=== PATIENT | female | born 1945 | race Two or more races ===

== ENCOUNTER 2019-09-24 06:44 | Day surgery (SDC) | payer MEDICARE, BC ==
--- NOTE | 2019-09-21 10:14 | Opthalmology H&P ---
Ophthalmology H&P H&P Chief Complaint: decreased vision in left eye HPI Vision Affects Ability to: read, manage personal affairs HPI Narrative Blurry vision Exam Visual Acuity: OD 20/60 OS 20/80 Tension: OD 21 OS 20 Eye Exam: normal OU: external exam, palpebral fissure-width, marginal reflex distance, levator function, corneas, anterior chambers, fundus exam; findings: lens - NS Cataracts OU Assessment/Plan Treatment Plan: cataract extraction w/ lens implant Goals of Treatment: improvement of vision, enhance quality of life Attestation Attestation The risks and benefits of the surgery as well as alternative procedures were explained to the patient in detail. Ari Nunes MD Sep 21, 2019 10:14
--- NOTE | 2019-09-21 10:15 | Pre-Procedure Note/Attestation ---
Pre-Procedure Note/Attestation Complete Prior to Procedure Planned Procedure: left Procedure Narrative: Cataract extraction with intraocular lens implant left eye Indications for Procedure Pre-Operative Diagnosis: Nuclear sclerotic cataract left eye Attestation I attest that I discussed the nature of the procedure; its benefits; risks and complications; and alternatives (and the risks and benefits of such alternatives ), prior to the procedure, with the patient (or the patient's legal outside dealer sales representative). I attest that, if there was a reasonable possibility of needing a blood transfusion, the patient (or the patient's legal outside dealer sales representative) was given the [facility] standardized written summary, pursuant to the [place]ke [place] Blood Safety Act ([place] Health and Safety Code # 1645, as amended). I attest that I re-evaluated the patient just prior to the surgery and that there has been no change in the patient's H&P, except as documented below: Ari Nunes MD Sep 21, 2019 10:15
[~2019-09-24] VITALS: Ht 167.6 cm; Wt 56.2 kg
[2019-09-24] VITALS (10 sets, daily range): BP systolic 110–141; BP diastolic 69–94
[2019-09-24] MEDS: Ciprofloxacin Opth Soln 5ml LEFT EYE SCH ×3 (06:10→07:47)
[~2019-09-24 06:44] MED LIST: ASPIR 8181 MG ORAL; Akten 3.5% 1ml Btl LEFT EYE ONE; CENTRUM SILVER1 EAC4 PO; Cyclopentolate 1% Opth Sol 2ml LEFT EYE SCH; HYDROCHLOROTH12.5 MG ORAL; K-TAB10 MEQ PO; LYRICA75 M1 ORAL; MAGNESIUM OXID400 M1 ORAL; METOPROLOL SUCC25 MG ORAL; NAMENDA XR7 MG PO; OMEPRAZOLE40 M1 ORAL; Phenylephrine 10% Opth Soln 5ml LEFT EYE SCH; Proparacaine 0.5% Opth Soln 15ml LEFT EYE ONE; TAB-A-VITE1 EACH ORAL; TRAMADOL HCL50 MG ORAL; Tetracaine 0.5% Opth 4ml Soln LEFT EYE ONE; Tobramycin Op Soln 0.3% 5ml LEFT EYE SCH; Tropicamide 1% Opth 15ml Soln LEFT EYE SCH
[2019-09-24] MEDS ORDERED: Proparacaine 0.5% Opth Soln 15ml LEFT EYE ONE (07:00)
[2019-09-24] MEDS ORDERED: Tetracaine 0.5% Opth 4ml Soln LEFT EYE ONE (07:00)
[2019-09-24] MEDS ORDERED: Akten 3.5% 1ml Btl LEFT EYE ONE (07:00)
[2019-09-24] MEDS: Tropicamide 1% Opth 15ml Soln LEFT EYE SCH ×3 (07:38→07:54)
[2019-09-24] MEDS: Tobramycin Op Soln 0.3% 5ml LEFT EYE SCH ×3 (07:39→07:54)
[2019-09-24] MEDS: Phenylephrine 10% Opth Soln 5ml LEFT EYE SCH ×3 (07:39→07:54)
[2019-09-24] MEDS: Cyclopentolate 1% Opth Sol 2ml LEFT EYE SCH ×3 (07:40→07:54)
[2019-09-24] MEDS ORDERED: Sodium Hyaluronate 10 mg/ml 0.85ml ONE (08:28)
[2019-09-24] MEDS ORDERED: BSS 500ml btl ONE (08:28)
[2019-09-24] MEDS ORDERED: BSS 15ml BTL ONE (08:28)
[2019-09-24] MEDS ORDERED: Povidone-Iodine 5% opth solution ONE (08:28)
[2019-09-24] MEDS ORDERED: LR 1000ml ONE (09:30)
[2019-09-24] MEDS ORDERED: fentaNYL 100 mcg/2 mL IV ONE ×2 (09:44→10:24)
[2019-09-24] MEDS ORDERED: Midazolam 2mg/2ml Inj ONE ×2 (09:44→10:04)
--- NOTE | 2019-09-24 11:27 | Immediate Post-Op Evaluation ---
Immediate Post-Op Evalulation Immediate Post-Op Evalulation Procedure: left eye cataract extraction with IOL Date of Evaluation: Sep 24, 2019 Time of Evaluation: 10:46 IV Fluids: 300 Blood Pressure Systolic: 127 Blood Pressure Diastolic: 78 Pulse Rate: 79 Respiratory Rate: 14 O2 Sat by Pulse Oximetry: 98 Temperature (Fahrenheit): 97.5 Nausea: No Vomiting: No Complications none Patient Status: awake, reacts, patent Hydration Status: adequate Drug: none Valarie Sharma CRNA Sep 24, 2019 11:27
--- NOTE | 2019-09-24 11:29 | Anethesia Preoperative Eval ---
Anesthesia Pre-op PMH/ROS General Date of Evaluation: Sep 24, 2019 Time of Evaluation: 09:35 Anesthesiologist: elinor ASA Score: ASA 2 Mallampati Score Class I : Soft palate, uvula, fauces, pillars visible Class II: Soft palate, uvula, fauces visible Class III: Soft palate, base of uvula visible Class IV: Only hard plate visible Mallampati Classification: Class II Surgeon: parviz Diagnosis: cataract Surgical Procedure: cataract extraction Anesthesia History: none Family History: no anesthesia problems Allergies: Coded Allergies: BANANA (Verified Adverse Reaction, Intermediate, vomiting, 09/20/19) EGG (Verified Adverse Reaction, Intermediate, vomiting, 09/20/19) MAYONNAISE (Verified Adverse Reaction, Intermediate, vomiting, 09/20/19) Medications: see eMAR Patient NPO?: Yes NPO Date: Sep 24, 2019 NPO Time: 00:01 Past Medical History Cardiovascular: Reports: HTN Pulmonary: Denies: asthma, COPD, EMMY, other Gastrointestinal/Genitourinary: Denies: GERD, CRI, ESRD, other Neurologic/Psychiatric: Reports: depression/anxiety; Denies: dementia, CVA, TIA, other Endocrine: Denies: DM, hypothyroidism, steroids, other HEENT: Denies: cataract (L), cataract (R), glaucoma, [place] (L), [place] (R), other Hematology/Immune: Denies: anemia, DVT, bleeding disorder, other Musculoskeletal/Integumentary: Denies: OA, RA, DJD, DDD, edema, other PSxH Narrative: unknown Anesthesia Pre-op Phys. Exam Physician Exam Last Vital Signs Date Time Temp Pulse Resp B/P (MAP) Pulse Ox O2 Delivery O2 Flow Rate FiO2 09/24/19 11:14 97.2 74 17 134/84 96 Room Air Constitutional: NAD Neurologic: CN 2-12 intact Cardiovascular: RRR Respiratory: CTA Gastrointestinal: S/NT/ND Airway Exam Mallampati Classification 2 Mallampati Score: Class II MO: full ROM: full Dentures: no upper, no lower Anesthesia Pre-op A/P Studies Pre-op Studies: EKG Risk Assessment & Plan Assessment: denies changes Plan: mac Status Change Before Surgery: No Pre-Antibiotics Drug: declined Valarie Sharma CRNA Sep 24, 2019 11:29
--- NOTE | 2019-09-24 12:44 | 48 Hour Post Anesthesia Eval ---
Post Anesthesia Evaluation Procedure: left eye cataract extraction with IOL Date of Evaluation: Sep 24, 2019 Time of Evaluation: 12:43 Blood Pressure Systolic: 134 0: 75 Pulse Rate: 70 Respiratory Rate: 14 Temperature (Fahrenheit): 97.3 - .3 O2 Sat by Pulse Oximetry: 98 Nausea: No Vomiting: No Hydration Status: adequate Cardiopulmonary Status: stable Mental Status/LOC: patient returned to baseline Post-Anesthesia Complications: none Follow-up care needed: N/A Valarie Sharma CRNA Sep 24, 2019 12:44
--- NOTE | 2019-09-24 15:38 | Brief Operative Note ---
Immediate Post Operative Note Operative Note Chief Complaint: Blurry vision Pre-op Diagnosis: Nuclear sclerotic cataract left eye Procedure: Cataract extraction with IOL implant left eye Post-op Diagnosis: Pseudophakia OS Findings: consistent w/pre-op dx studies Surgeon: Ari Nunes MD Anesthesiologist: Valarie Sharma MD Anesthesia: MAC Specimen: none Complications: none Condition: stable Fluids: LR Estimated Blood Loss: none Drains: none Implant(s) used?: Yes - IOL-OS Ari Nunes MD Sep 24, 2019 15:38
--- NOTE | 2019-09-24 15:40 | Operative Note - PDOC ---
Operative Note Operative Note Date of Operation/Procedure: Sep 24, 2019 Chief Complaint: Blurry vision Pre-op Diagnosis: Nuclear sclerotic cataract left eye Procedure: Cataract extraction with IOL implant left eye Post-op Diagnosis: Pseudophakia OS Operative Findings: consistent w/pre-op dx studies Surgeon: Ari Nunes MD Anesthesiologist: Valarie Sharma MD Anesthesia: MAC Specimen: none Complications: none Condition: stable Fluids: LR Estimated Blood Loss: none Drains: none Implant(s) used?: Yes - IOL-OS Indications for Procedure Nuclear sclerotic cataract left eye Description of Procedure This patient has been complaining visually significant cataract in the left eye with the best corrected visual acuity of 20/80 under moderate glare conditions worse. The patient complains of difficulties with glare in performing activities of daily living and wants to manage personal affairs with comfort and accuracy and see well enough to move with safety at home and outdoors. The risks, benefits and alternatives of the procedure were discussed with the patient in the office prior to scheduling surgery. All questions from the patient were answered after the surgical procedure was explained in detail. The risks of the procedure as explained to the patient include, but are not limited to, pain, infection, bleeding, loss of vision, retinal detachment, need for further surgery, loss of lens nucleus, double vision, etc. Alternative procedures were discussed which include, to do nothing or seek a second opinion. Informed consent for this procedure was obtained from the patient. The patient was referred to a primary care physician for a cardiopulmonary clearance prior to surgery, after proper evaluation was done patient was properly scheduled for outpatient surgery. The patient was brought to the operating room where the anesthesiologist established I.V. lines and cardiac monitoring leads. Mild intravenous sedation was administered. The patient was then prepared with a 5% solution of povidone -iodine to the conjunctival fornix and lashes, and a 5% solution of povidone- iodine to the lids and periorbital skin. The patient was then draped in the usual sterile fashion. A lid speculum was then placed in the operative eye. A keratome blade was then used to create a biplanar incision into the anterior chamber. Viscoelastics was then instilled into the anterior chamber. A capsulorrhexis was then fashioned with an utrata forceps followed by hydrodissection and hydro delineation of the lens nucleus. Paracentesis incision was made at 3 o'clock with sharp blade. The phacoemulsification unit, after being properly adjusted and tested, was then used to emulsify the nucleus followed by aspiration and irrigation of residual cortical material. Healon was then instilled into the anterior chamber. The corneal wound was then enlarged to the size of the optic with the viridiana keratome blade. The intraocular lens was then inspected for right power and size and thought to be satisfactory. Then the lens was gently placed in the capsular bag. Positioning within the capsular bag was confirmed by direct visualization. Optic centration was accomplished with a Sinskey hook. Viscoelastics was removed from the anterior chamber using the irrigation and aspiration unit. The corneal wound was then tested for leaks and none were found. The lid speculum were then removed. Sponge and needle counts were correct. An eye patch and shield were placed over the operative eye. The patient was taken to the recovery room in stable condition. There were no complications. The patient tolerated the procedure well. The patient was then transferred to the ambulatory surgery unit in stable and satisfactory condition , was given detailed written instructions and asked to follow up in the office the next day. Ari Nunes MD Sep 24, 2019 15:40
== END 2019-09-24 12:20 | disposition home or self-care (01) ==
LOC: SUR 06:44
DX: H25.12 Age-related nuclear cataract, left eye (principal); I10 Essential (primary) hypertension; F32.9 Major depressive disorder, single episode, unspecified; F41.9 Anxiety disorder, unspecified; Z91.012 Allergy to eggs; Z91.018 Allergy to other foods
CPT/HCPCS: 66984; 94003; J2250; J3010; J3370; J7120; V2632; 94150